=== PATIENT | female | born 1990 | race Caucasian/White ===

== ENCOUNTER → 2017-06-04 11:02 | Outpatient (CLI) | payer MEDICARE ==
[2015-03-21 07:07] VITALS: BMI 34.5
== END | disposition home or self-care (01) ==
LOC: D.NM 11:02
DX: R10.9 Unspecified abdominal pain (principal)

== ENCOUNTER → 2018-07-20 17:44 | Outpatient (CLI) | payer BC ==
[2015-03-21 07:07] VITALS: BMI 34.5
== END | disposition home or self-care (01) ==
LOC: D.CT 17:30
DX: R22.2 Localized swelling, mass and lump, trunk (principal)

== ENCOUNTER → 2019-06-15 08:31 | Outpatient (CLI) | payer BC ==
[2015-03-21 07:07] VITALS: BMI 34.5
== END | disposition home or self-care (01) ==
LOC: D.US 08:30
PROVIDERS: ATTEND Family Medicine
DX: N63.13 Unspecified lump in the right breast, lower outer quadrant (principal)